=== PATIENT | female | born 2000 | race Caucasian/White ===

== ENCOUNTER → 2023-07-03 10:58 | Outpatient (REF) | payer OTHER, SELFPAY ==
[2023-07-05 20:10] LABS: Quantiferon Mitogen minus NIL 7.44 IU/mL; Quantiferon NIL 0.02 IU/mL; Quantiferon TB Gold Plus Negative (Negative)
== END ==
LOC: OHS 10:58
PROVIDERS: ATTENDING PHYSICIAN Nurse Practitioner Family
DX: Z23 Encounter for immunization (principal)
CPT/HCPCS: 86480